=== PATIENT | male | born 1965 | race Caucasian/White ===

== ENCOUNTER 2020-05-05 07:16 | Emergency (ER) | payer MEDICARE, OTHER ==
[~2020-05-05] VITALS: Ht 195.6 cm; Wt 81.6 kg
[2020-05-05] MEDS ORDERED: OLANZAPINE 5 MG TABLET ONE (07:40)
[2020-05-05 07:45] LABS: BASOPHILS % (AUTO) 0.5 % (0.0-2.0); EOSINOPHILS # (AUTO) 0.1 K/uL (0.0-0.7); EOSINOPHILS % (AUTO) 0.9 % (0.0-7.0); HEMOGLOBIN 11.3 g/dL (12.5-16.3); LYMPHOCYTES % (AUTO) 11.6 % (20.5-51.5); MEAN CORPUSCULAR HEMOGLOBIN 24.9 uug (23.8-33.4); MEAN CORPUSCULAR HGB CONC 33 g/dL (32.5-36.3); MEAN CORPUSCULAR VOLUME 74.9 fL (73.0-96.2); MONOCYTES # (AUTO) 0.9 K/uL (2.0-10.0); NEUTROPHILS # (AUTO) 6.4 K/uL (1.8-8.9); PLATELET COUNT (AUTO) 346 K/uL (152-348); RED BLOOD CELL COUNT(AUTO) 4.54 MIL/uL (4.06-5.63); WHITE BLOOD COUNT (AUTO) 8.4 K/uL (3.6-10.2)
[2020-05-05] MEDS ORDERED: OLANZAPINE ZYDIS 5 MG TAB.RAPDIS PO SCH (07:45)
--- NOTE | 2020-05-05 07:50 | NUR ---
Cleand wound on left ear as ordered.
[2020-05-05 07:55] LABS: CARBON DIOXIDE 30 mmol/L (21-32); CHLORIDE 104 mmol/L (98-107); CREATININE 1.5 mg/dL (0.6-1.3); GLUCOSE 112 mg/dL (74-106); POTASSIUM 3.8 mmol/L (3.5-5.1); UREA NITROGEN, BLOOD 35 mg/dL (7-18)
[2020-05-05 07:57] LABS: ETHANOL < 3 MG/DL (0-0)
[2020-05-05 07:57] LABS: *BILIRUBIN,URIN NEGATIVE (NEGATIVE); *BLOOD, URINE NEGATIVE (NEGATIVE); *CLARITY,URINE CLEAR (CLEAR); *COLOR,URINE YELLOW (YELLOW); *KETONES,URINE NEGATIVE (NEGATIVE); *UROBILINOGEN,URINE 0.2 E.U./dl (NORMAL); LEUKOCYTE ESTERASE ,URINE NEGATIVE (NEGATIVE); NITRITE, URINE NEGATIVE (NEGATIVE); UGLUCOSE NEGATIVE (NEGATIVE)
[2020-05-05 08:00] LABS: ALANINE AMINOTRANSFERASE 22 U/L (16-63); ALKALINE PHOSPHATASE 85 U/L (50-136); ASPARTATE AMINOTRANSFERASE 16 U/L (15-37); BILIRUBIN,DIRECT 0.1 mg/dL (0.0-0.2); BILIRUBIN,TOTAL 0.2 mg/dL (0.2-1.0); TOTAL PROTEIN, SERUM 7.6 g/dL (6.4-8.2)
--- NOTE | 2020-05-05 08:00 | NUR ---
Patient tolerated breakfast provided.
[2020-05-05 08:02] LABS: MAGNESIUM 2.1 mg/dL (1.8-2.4)
[2020-05-05 08:10] LABS: *AMPHETAMINE, URINE POSITIVE (NEGATIVE); *CANNABINOID, URINE NEGATIVE (NEGATIVE); *COCCAINE, URINE NEGATIVE (NEGATIVE); *OPIATE, URINE NEGATIVE (NEGATIVE); *PHENCYCLIDINE SCREEN,URINE NEGATIVE (NEGATIVE)
[2020-05-05] MEDS ORDERED: IV NORMAL SALINE 1000 ML BAG IV ONE (08:15)
--- NOTE | 2020-05-05 08:55 | NUR ---
IV removed. Catheter intact and site benign. Pressure and 4x4 gauze applied to site. No bleeding noted.
--- NOTE | 2020-05-05 09:02 | NUR ---
Patient given written and verbal discharge instructions. Patient verbalizes understanding of instructions. Patient is ambulatory with steady gait. Refuses offer of fdc placement. Patient given list of available shelters in surrounding area.
[2020-05-05 09:05] VITALS: BP 159/95
[2020-05-05 10:11] LABS: LYMPHOCYTES % (MANUAL) 19 % (20-40); MONOCYTES % (MANUAL) 7 % (2-10); NEUTROPHILS % (MANUAL) 74 % (42-75)
== END 2020-05-05 09:05 | disposition home or self-care (01) ==
LOC: ER 07:16
DX: F23 Brief psychotic disorder (principal); F15.229 Other stimulant dependence with intoxication, unspecified; Z72.0 Tobacco use; E86.0 Dehydration; K02.9 Dental caries, unspecified; N17.9 Acute kidney failure, unspecified; I16.0 Hypertensive urgency; L98.8 Other specified disorders of the skin and subcutaneous tissue; E11.9 Type 2 diabetes mellitus without complications; Z59.0 Homelessness
CPT/HCPCS: 36415; 70030-TC; 83690; 83735; 85025; A4663; G0480

== ENCOUNTER 2020-07-01 01:23 | Emergency (ER) | payer MEDICARE, OTHER ==
[~2020-07-01] VITALS: Ht 195.6 cm; Wt 83.9 kg
[2020-07-01] MEDS ORDERED: TDAP DIPH,PERTUSS,TET VAC/PF 0.5 ML DISP.SYRIN IM ONE ×2 (01:45→02:58)
[2020-07-01] MEDS ORDERED: hydrOXYzine HCL 10 MG TABLET PO ONE (01:45)
--- NOTE | 2020-07-01 02:33 | NUR ---
pt was seen by . in the waiting area.
--- NOTE | 2020-07-01 02:43 | NUR ---
Pt. refusing to have IV access. notified.
[2020-07-01] MEDS ORDERED: hydrOXYzine HCL 10 MG TABLET ONE (02:58)
--- NOTE | 2020-07-01 03:13 | NUR ---
Report given to Demond Wagner.
--- NOTE | 2020-07-01 03:25 | NUR ---
Patient consented to receiving of IV access, labs drawn, COVID-19 rapid taken, pt unable to void: 4L of water given. Pending UA. IV d/c'ed patient refused to retain IV access OK per DR. SEBASTIAN.
[2020-07-01 03:59] LABS: BASOPHILS % (AUTO) 0.6 % (0.0-2.0); EOSINOPHILS # (AUTO) 0.2 K/uL (0.0-0.7); EOSINOPHILS % (AUTO) 2.5 % (0.0-7.0); HEMATOCRIT 31.1 % (36.7-47.1); HEMOGLOBIN 10.4 g/dL (12.5-16.3); LYMPHOCYTES # (AUTO) 1.3 K/uL (20.0-40.0); LYMPHOCYTES % (AUTO) 15.6 % (20.5-51.5); MEAN CORPUSCULAR HEMOGLOBIN 24.7 uug (23.8-33.4); MEAN CORPUSCULAR HGB CONC 33 g/dL (32.5-36.3); MEAN CORPUSCULAR VOLUME 74.3 fL (73.0-96.2); MONOCYTES # (AUTO) 0.9 K/uL (2.0-10.0); MONOCYTES % (AUTO) 10.3 % (0.0-11.0); NEUTROPHILS # (AUTO) 6.1 K/uL (1.8-8.9); PLATELET COUNT (AUTO) 390 K/uL (152-348); RED BLOOD CELL COUNT(AUTO) 4.19 MIL/uL (4.06-5.63); WHITE BLOOD COUNT (AUTO) 8.5 K/uL (3.6-10.2)
[2020-07-01 04:05] LABS: CARBON DIOXIDE 31 mmol/L (21-32); CHLORIDE 105 mmol/L (98-107); CREATININE 1.1 mg/dL (0.6-1.3); ETHANOL < 3 MG/DL (0-0); GLUCOSE 124 mg/dL (74-106); POTASSIUM 3.5 mmol/L (3.5-5.1); UREA NITROGEN, BLOOD 22 mg/dL (7-18)
[2020-07-01 04:11] LABS: ACETAMINOPHEN < 2.0 ug/mL (10-30); ALANINE AMINOTRANSFERASE 27 U/L (16-63); ALKALINE PHOSPHATASE 100 U/L (50-136); ASPARTATE AMINOTRANSFERASE 17 U/L (15-37); BILIRUBIN,DIRECT 0.1 mg/dL (0.0-0.2); BILIRUBIN,TOTAL 0.2 mg/dL (0.2-1.0); TOTAL PROTEIN, SERUM 7.9 g/dL (6.4-8.2)
[2020-07-01 04:35] LABS: *BILIRUBIN,URIN NEGATIVE (NEGATIVE); *BLOOD, URINE NEGATIVE (NEGATIVE); *CLARITY,URINE CLEAR (CLEAR); *COLOR,URINE YELLOW (YELLOW); *KETONES,URINE NEGATIVE (NEGATIVE); *UROBILINOGEN,URINE 0.2 E.U./dl (NORMAL); LEUKOCYTE ESTERASE ,URINE NEGATIVE (NEGATIVE); NITRITE, URINE NEGATIVE (NEGATIVE); UGLUCOSE NEGATIVE (NEGATIVE)
[2020-07-01 04:41] LABS: *AMPHETAMINE, URINE POSITIVE (NEGATIVE); *CANNABINOID, URINE NEGATIVE (NEGATIVE); *COCCAINE, URINE NEGATIVE (NEGATIVE); *OPIATE, URINE NEGATIVE (NEGATIVE); *PHENCYCLIDINE SCREEN,URINE NEGATIVE (NEGATIVE)
--- NOTE | 2020-07-01 05:15 | NUR ---
Per pt is medically clear for psych eval, called Alisa ([phone]), no answer, left urgent message.
--- NOTE | 2020-07-01 06:00 | NUR ---
No call back from [facility]. Per schedule there is no one social professionals until 0800 (Pinky).
--- NOTE | 2020-07-01 08:05 | NUR ---
Spoke with Yaneli via telephone, state she will be in to eval the pt.
--- NOTE | 2020-07-01 09:15 | NUR ---
Pinky in to pete galeas
--- NOTE | 2020-07-01 10:35 | NUR ---
PAMELA SAID THAT [facility] HAVE ROOMS, REVIEWING THE CASE AT THIS TIME.
--- NOTE | 2020-07-01 11:00 | NUR ---
Received telephone call from Yaneli who stated pt has been accepted at [facility], accepting, call [phone] for report.
--- NOTE | 2020-07-01 11:05 | NUR ---
Report given to Sabrina at [facility] via telephone ([phone]).
--- NOTE | 2020-07-01 11:10 | NUR ---
Called [facility] for transport to [facility] ([address] [place] [address]). ETA 1245, trip# [id number].
--- NOTE | 2020-07-01 12:30 | NUR ---
Pt eating lunch, NAD noted, remains calm and cooperative.
--- NOTE | 2020-07-01 13:06 | NUR ---
Pt trans to [facility] via [facility] noted.
== END 2020-07-01 13:00 ==
LOC: ER 01:25
DX: R45.851 Suicidal ideations (principal); F15.10 Other stimulant abuse, uncomplicated; Z59.0 Homelessness; I10 Essential (primary) hypertension; F19.10 Other psychoactive substance abuse, uncomplicated; Z20.828 Contact with and (suspected) exposure to other viral communicable diseases; D69.6 Thrombocytopenia, unspecified; F20.9 Schizophrenia, unspecified; E11.9 Type 2 diabetes mellitus without complications; S00.412A Abrasion of left ear, initial encounter; X58.XXXA Exposure to other specified factors, initial encounter; Y92.89 Other specified places as the place of occurrence of the external cause
CPT/HCPCS: 36415; 85025; 90715; A4663; G0480

== ENCOUNTER 2020-11-13 01:07 | Emergency (ER) | payer MEDICARE, OTHER ==
[~2020-11-13] VITALS: Ht 195.6 cm; Wt 95.3 kg
[~2020-11-13 01:07] MED LIST: SULF1TAB48 PO
--- NOTE | 2020-11-13 01:15 | NUR ---
Dr. Dailey at bedside for MSE.
[2020-11-13] MEDS ORDERED: ACETAMINOPHEN 325 MG TABLET ONE (01:29)
[2020-11-13] MEDS ORDERED: BACITRACIN ZINC OINT 15 GM TUBE TOP ONE (01:30)
[2020-11-13] MEDS ORDERED: TDAP DIPH,PERTUSS,TET VAC/PF 0.5 ML DISP.SYRIN IM ONE (01:30)
[2020-11-13] MEDS ORDERED: ACETAMINOPHEN 325 MG TABLET PO ONE (01:30)
[2020-11-13] MEDS ORDERED: MUPIROCIN 2% OINT 22 GM TUBE ONE (01:32)
--- NOTE | 2020-11-13 02:17 | NUR ---
Pt. jossue, vss. Provided tylenol po for pain. Pt. refused tdap vaccine and wound care. made aware. [place] and clean clothes provided. Pt. being verbally abusive, exposed his genitals to staff.
--- NOTE | 2020-11-13 02:27 | NUR ---
[employer] at bedside
--- NOTE | 2020-11-13 02:58 | NUR ---
[employer] left bedside. Patient expressed SI. Crisis team evaluation is pending.
[2020-11-13 03:09] LABS: BASOPHILS % (AUTO) 0.7 % (0.0-2.0); EOSINOPHILS # (AUTO) 0.2 K/uL (0.0-0.7); EOSINOPHILS % (AUTO) 2.8 % (0.0-7.0); HEMATOCRIT 31.8 % (36.7-47.1); HEMOGLOBIN 10.3 g/dL (12.5-16.3); LYMPHOCYTES # (AUTO) 1.1 K/uL (20.0-40.0); LYMPHOCYTES % (AUTO) 16.9 % (20.5-51.5); MEAN CORPUSCULAR HEMOGLOBIN 23.8 uug (23.8-33.4); MEAN CORPUSCULAR HGB CONC 32 g/dL (32.5-36.3); MEAN CORPUSCULAR VOLUME 73.5 fL (73.0-96.2); MONOCYTES # (AUTO) 0.6 K/uL (2.0-10.0); MONOCYTES % (AUTO) 9.4 % (0.0-11.0); NEUTROPHILS # (AUTO) 4.5 K/uL (1.8-8.9); NEUTROPHILS % (AUTO) 70.2 % (38.5-71.5); PLATELET COUNT (AUTO) 356 K/uL (152-348); RED BLOOD CELL COUNT(AUTO) 4.33 MIL/uL (4.06-5.63); WHITE BLOOD COUNT (AUTO) 6.4 K/uL (3.6-10.2)
[2020-11-13 03:18] LABS: *BILIRUBIN,URIN NEGATIVE (NEGATIVE); *BLOOD, URINE NEGATIVE (NEGATIVE); *CLARITY,URINE CLEAR (CLEAR); *COLOR,URINE YELLOW (YELLOW); *KETONES,URINE NEGATIVE (NEGATIVE); *UROBILINOGEN,URINE 0.2 E.U./dl (NORMAL); LEUKOCYTE ESTERASE ,URINE NEGATIVE (NEGATIVE); NITRITE, URINE NEGATIVE (NEGATIVE); PH,URINE 6.5 (5.0-8.0); UGLUCOSE NEGATIVE (NEGATIVE)
[2020-11-13 03:18] LABS: CARBON DIOXIDE 27 mmol/L (21-32); CHLORIDE 105 mmol/L (98-107); CREATININE 1.1 mg/dL (0.6-1.3); GLUCOSE 117 mg/dL (74-106); POTASSIUM 3.7 mmol/L (3.5-5.1); UREA NITROGEN, BLOOD 20 mg/dL (7-18)
[2020-11-13 03:24] LABS: ETHANOL < 3 MG/DL (0-0)
--- NOTE | 2020-11-13 03:25 | NUR ---
Pt. placed on suicide precautions. Placed pt. in gown, secured room and removed all personal belongings in a bag at nursing station. Will continue to monitor pt. 1 to 1.
[2020-11-13 03:30] LABS: ALANINE AMINOTRANSFERASE 18 U/L (16-63); ALKALINE PHOSPHATASE 85 U/L (50-136); ASPARTATE AMINOTRANSFERASE 15 U/L (15-37); BILIRUBIN,DIRECT 0.1 mg/dL (0.0-0.2); BILIRUBIN,TOTAL 0.2 mg/dL (0.2-1.0); TOTAL PROTEIN, SERUM 7.2 g/dL (6.4-8.2)
[2020-11-13 03:36] LABS: ACETAMINOPHEN < 2.0 ug/mL (10-30)
[2020-11-13 03:37] LABS: *AMPHETAMINE, URINE POSITIVE (NEGATIVE); *CANNABINOID, URINE NEGATIVE (NEGATIVE); *COCCAINE, URINE NEGATIVE (NEGATIVE); *OPIATE, URINE NEGATIVE (NEGATIVE); *PHENCYCLIDINE SCREEN,URINE NEGATIVE (NEGATIVE)
--- NOTE | 2020-11-13 03:55 | NUR ---
Pt. medically cleared by Dr. Dailey.
--- NOTE | 2020-11-13 03:57 | NUR ---
Called Alisa Iyer RN (PET team) for pt. psych eval. Left message.
--- NOTE | 2020-11-13 04:19 | NUR ---
Called Alisa Iyer RN (PET Team), did not reach her.
--- NOTE | 2020-11-13 04:44 | NUR ---
Spoke with Alisa Iyer RN; she says she is on her way to evaluate the pt.
--- NOTE | 2020-11-13 05:30 | NUR ---
Alisa Iyer RN PET arrived to ER for patient psych evaluation.
--- NOTE | 2020-11-13 06:04 | NUR ---
Alisa RN did crisis eval. Pt. was not placed on hold. Pt. agreed to go to [facility] voluntarily.
--- NOTE | 2020-11-13 07:25 | NUR ---
REPORT RECEIVED FROM GEOSPATIAL SCIENTIST RN. PATIENT ASLEEP AND NO S/S OF DISTRESS NOTED. WILL CONTINUE WITH PLAN OF CARE.
--- NOTE | 2020-11-13 07:42 | NUR ---
s/W Nicole - [facility] Psych Intake. According to her, patient is on a priority list for admission. She will update us by 9 AM after their AM discharges. Pt in room, sleeping, stable, no SI/HI at this time.
--- NOTE | 2020-11-13 09:01 | NUR ---
S/W AYUSH FROM [facility] PSYCH INTAKE REGARDING UPDATE ON ADMISSION STATUS. STATES, "STILL WAITING ON [employer] TO UPDATE REGARDING ROOM PLACEMENT AND WILL CALL BACK FOR AN UPDATE WITHIN THE HOUR."
--- NOTE | 2020-11-13 09:29 | NUR ---
RECEIVED CALLBACK FROM [facility] PSYCH INTAKE. PATIENT ACCEPTED AT [place] LOCATION. BED AVAILABLE AFTER 12 PM.
--- NOTE | 2020-11-13 09:38 | NUR ---
After accepting patient to [facility], patient was notified of the acceptance and pending room/transport. At this time, patient yelled that he is not suicidal and will not go to the accepting facility. Pt was not placed on a hold by the crisis team, and is able to contract for safety. Dr. Mendoza was notified and Brandy Linder, director of mental health was consulted. Meanwhile, patient was provided with clothing, and ate breakfast.
--- NOTE | 2020-11-13 09:54 | NUR ---
Dr. Mendoza cleared patient for discharge. Clothes and meal was provided to the patient. Patient given written and verbal discharge instructions. Patient verbalizes understanding of instructions. Refuses offer of longterm placement and other resources. Patient given list of available shelters in surrounding area. Patient is ambulatory with steady gait. Left ER in steady gait after eating his meal in the waiting room.
[2020-11-13 09:56] VITALS: BP 135/70
--- NOTE | 2020-11-13 09:58 | NUR ---
Notified [facility] that patient changed his mind and decided to go home. S/W Jennifer from [facility].
== END 2020-11-13 09:58 | disposition home or self-care (01) ==
LOC: ER 01:10
DX: R45.851 Suicidal ideations (principal); S00.81XA Abrasion of other part of head, initial encounter; X58.XXXA Exposure to other specified factors, initial encounter; Y92.89 Other specified places as the place of occurrence of the external cause; Z59.0 Homelessness; I10 Essential (primary) hypertension; F15.10 Other stimulant abuse, uncomplicated; Z20.822 Contact with and (suspected) exposure to COVID-19; D64.9 Anemia, unspecified; D69.6 Thrombocytopenia, unspecified; F20.9 Schizophrenia, unspecified; E11.9 Type 2 diabetes mellitus without complications; Z88.0 Allergy status to penicillin; F17.200 Nicotine dependence, unspecified, uncomplicated
CPT/HCPCS: 36415; 85025; 93005; A4663; G0480

== ENCOUNTER 2021-05-27 23:57 | Emergency (ER) | payer MEDICARE, OTHER ==
[~2021-05-27] VITALS: Ht 193 cm; Wt 99.8 kg
--- NOTE | 2021-05-28 | NUR ---
Dr. Dailey at bedside for MSE.
[2021-05-28] MEDS ORDERED: diphenhydrAMINE 25 MG CAP PO ONE ×2 (00:15→00:17)
[2021-05-28] MEDS ORDERED: LORAZEPAM 0.5 MG TABLET PO ONE (00:15)
[2021-05-28] MEDS ORDERED: ACETAMINOPHEN 325 MG TABLET PO ONE (00:15)
[2021-05-28] MEDS ORDERED: ACETAMINOPHEN 325 MG TABLET ONE (00:16)
[2021-05-28] MEDS ORDERED: LORAZEPAM 1 MG TABLET ONE (00:16)
[2021-05-28 00:25] LABS: HEMATOCRIT 30.8 % (36.7-47.1); MEAN CORPUSCULAR HEMOGLOBIN 22.7 uug (23.8-33.4); MEAN CORPUSCULAR VOLUME 69.6 fL (73.0-96.2); PLATELET COUNT (AUTO) 614 K/uL (152-348)
[2021-05-28 00:32] LABS: ACETAMINOPHEN < 2.0 ug/mL (10-30); ALANINE AMINOTRANSFERASE 39 U/L (16-63); ALKALINE PHOSPHATASE 91 U/L (50-136); ASPARTATE AMINOTRANSFERASE 33 U/L (15-37); BILIRUBIN,DIRECT 0.1 mg/dL (0.0-0.2); BILIRUBIN,TOTAL 0.2 mg/dL (0.2-1.0); CARBON DIOXIDE 28 mmol/L (21-32); CHLORIDE 103 mmol/L (98-107); CREATININE 1.4 mg/dL (0.6-1.3); GLUCOSE 164 mg/dL (74-106); POTASSIUM 3.9 mmol/L (3.5-5.1); TOTAL PROTEIN, SERUM 7.9 g/dL (6.4-8.2); UREA NITROGEN, BLOOD 31 mg/dL (7-18)
[2021-05-28 00:40] LABS: ETHANOL < 3 MG/DL (0-0)
[2021-05-28 01:23] LABS: EOSINOPHILS % (MANUAL) 1 % (0-8); LYMPHOCYTES % (MANUAL) 10 % (20-40); MONOCYTES % (MANUAL) 5 % (2-10); NEUTROPHILS % (MANUAL) 84 % (42-75)
[2021-05-28] MEDS ORDERED: DIPH25TA62 PO (02:59)
--- NOTE | 2021-05-28 07:03 | NUR ---
Report given to Rudy morales.
--- NOTE | 2021-05-28 08:39 | NUR ---
Pt is resting, stable, and responsive to stimuli. Woke up for breakfast and requesting time to rest. Plan to D/C in 30 mins.
--- NOTE | 2021-05-28 10:17 | NUR ---
Pt still sleeping. Continues to be responsive to stimuli.
--- NOTE | 2021-05-28 13:00 | NUR ---
Pt dressed self and ambulated out of the ER in stable condition, with java security architect present. Refused to sign any paperwork. Was provided with lunch tray before leaving.
--- NOTE | 2021-05-28 13:00 | NUR ---
Patient given written and verbal discharge instructions. Patient verbalizes understanding of instructions. Patient is ambulatory with steady gait. Refuses offer of detention placement. Patient given list of available shelters in surrounding area.
[2021-05-28 13:22] VITALS: BP 158/78
== END 2021-05-28 13:00 | disposition home or self-care (01) ==
LOC: ER 05-28 00:01
DX: G92.9 Unspecified toxic encephalopathy (principal); T50.905A Adverse effect of unspecified drugs, medicaments and biological substances, initial encounter; Y92.410 Unspecified street and highway as the place of occurrence of the external cause; R20.2 Paresthesia of skin; F15.10 Other stimulant abuse, uncomplicated; F20.9 Schizophrenia, unspecified; Z59.00 Homelessness unspecified; E11.9 Type 2 diabetes mellitus without complications; Z88.0 Allergy status to penicillin; F17.210 Nicotine dependence, cigarettes, uncomplicated; R03.0 Elevated blood-pressure reading, without diagnosis of hypertension; Z82.49 Family history of ischemic heart disease and other diseases of the circulatory system
CPT/HCPCS: 80048; 80076; 80299; 80307; 80320; 85007; 85025; 87426; 99284; Q0163; 70030-TC; G0480

== ENCOUNTER 2021-08-12 05:41 | Emergency (ER) | payer MEDICARE, OTHER ==
[~2021-08-12 05:41] MED LIST changes: +DIPH25TA62 PO
== END 2021-08-13 09:18 | disposition left against medical advice (07) ==
LOC: ER 05:42
DX: Z53.21 Procedure and treatment not carried out due to patient leaving prior to being seen by health care provider (principal)